=== PATIENT | female | born 1980 | race Caucasian/White ===

== ENCOUNTER 2018-01-30 04:50 | Emergency (ER) | payer OTHER ==
[~2018-01-30] VITALS: Ht 160 cm; Wt 54.4 kg
== END 2018-01-30 08:59 | disposition home or self-care (01) ==
LOC: ER 04:50
DX: R11.2 Nausea with vomiting, unspecified (principal); F10.129 Alcohol abuse with intoxication, unspecified

== ENCOUNTER → 2019-05-20 06:00 | Outpatient (CLI) | payer OTHER ==
[~2019-05-20 06:00] MED LIST: MEGESTROL ACETA20 MG PO
== END | disposition home or self-care (01) ==
LOC: LAB 06:00 → ADM 07:15 → CIR.AMB 05-25 07:15 → EDSTATUS 05-25 07:15 → CIR.AMB 05-25 08:15
DX: Z01.812 Encounter for preprocedural laboratory examination (principal)